=== PATIENT | female | born 1990 | race Caucasian/White ===

== ENCOUNTER 2020-02-11 20:18 | Emergency (ER) | payer OTHER, SELFPAY ==
--- NOTE | ~2020-02-11 | XR_ITS ---
XR chest 2V DATE: 02/11/2020 21:53 INDICATION: Chest pain, shortness of breath for one day. Hypertension. TECHNIQUE: 2 views COMPARISON: 11/16/2015 2 view chest FINDINGS: Normal heart size. No hilar or mediastinal enlargement. No pulmonary infiltrate or consolid ation, pleural effusion or pulmonary vascular congestion or pneumothorax. Status post cholecystectomy. IMPRESSION: No active cardiopulmonary disease Status post cholecystectomy Reviewed, dictated and finalized at location A. M [employer] ENGINEER
[2020-02-11 20:23] VITALS: BP 177/117; PULSE 105; RESP 24; TEMP 36.6; O2SAT 98
--- NOTE | 2020-02-11 20:56 | ECG_ITS ---
Measurements Intervals [place] Rate: 80 P: 25 MO: 161 QRS: 13 QRSD: 93 T: 3 QT: 398 QTc: 461 Interpretive Statements SINUS RHYTHM DELAYED PRECORDIAL R/S TRANSITION BORDERLINE T WAVE ABNORMALITY- INFERIOR LEADS BORDERLINE ECG Electronically Signed On 02-12-2020 8:38:13 [employer]INKER by Shane Magallon D.O.
[2020-02-11 21:21] LABS: Basophils Percent Auto 0.4 % (0.2-1.2); Eosinophils Absolute Auto 0.2 K/mm3 (0-0.3); Eosinophils Percent Auto 2.7 % (0-4.4); Hematocrit 45.2 % (37.0-47.0); Hemoglobin 15.1 g/dL (12.0-15.0); Immature Granulocyte Absolute 0.02 K/mm3 (0.00-0.031); Immature Granulocyte Percent A 0.3 % (0-0.5); Immature Platelet Fraction Pct 2.3 % (0.9-11.2); Lymphocytes Absolute Auto 2.37 K/mm3 (0.9-3.2); Lymphocytes Percent Auto 30.7 % (18.3-44.2); Mean Corpuscular HGB Conc 33.4 g/dl (32-36); Mean Corpuscular Hemoglobin 26.4 pg (26-34); Mean Corpuscular Volume 79.2 fl (80-100); Mean Platelet Volume 9.2 fl (7.4-10.4); Monocytes Absolute Auto 0.3 K/mm3 (0.1-0.6); Monocytes Percent Auto 4.4 % (2.6-8.5); Neutrophils Absolute Auto 4.8 K/mm3 (1.3-6.7); Neutrophils Percent Auto 61.5 % (45.5-73.1); Platelet Count Result 331 k/mm3 (150-375); Red Blood Count 5.71 M/mm3 (4.2-5.4); Red Cell Distribution Width 13.9 % (11.5-14.5); White Blood Count 7.7 K/mm3 (4.5-10.0)
[2020-02-11 23:06] VITALS: BP 163/118; PULSE 86; RESP 16; O2SAT 92
[2020-02-11 23:36] LABS: Anion Gap 11 mmol/L (8-16); Blood Urea Nitrogen 10 mg/dL (7-17); Calcium 9.2 mg/dL (8.4-10.2); Carbon Dioxide 24 mmol/L (22-30); Chloride 105 mmol/L (98-107); Estimated Glomerular Filt Rate > 60; Glucose 98 mg/dL (65-105); Potassium 3.9 mmol/L (3.4-5.0); Sodium 140 mmol/L (137-145)
--- NOTE | 2020-02-12 00:03 | ED.GENADULT ---
HPI - General Adult General Chief complaint: Shortness of Breath/Dyspnea Stated complaint: Short of Breath Time Seen by Provider: 02/11/20 23:24 Source: RN notes reviewed History of Present Illness HPI narrative: Patient presents to emergency department from home for chest pain. Patient states symptoms began approximately 6 PM this evening. Pain is located across the bilateral anterior chest and described as a pressure. Associated with mild feeling of shortness of breath. States symptoms are worse with deep inspiration. She denies any fevers or chills abdominal pain nausea vomiting diarrhea or any other symptoms. Related Data Home Medications Medication Instructions Recorded Confirmed Vitamin 02/26/19 Allergies Allergy/AdvReac Type Severity Reaction Status Date / Time No Known Allergies Allergy Verified 02/26/19 16:37 Review of Systems Review of Systems: Narrative: Gen.: Denies fevers or chills ENT: Denies congestion Respiratory: Reports mild shortness of breath CV: See HPI GI: Denies abdominal pain nausea, emesis or diarrhea denies burning, urgency, frequency or hematuria Musculoskeletal: Denies back pain or muscle pain Neuro: Denies numbness, tingling, weakness or focal weakness Skin: Denies rash Except as documented, all other systems reviewed and negative [facility] Past Medical History Medical History (Updated 02/12/20 @ 01:40 by Jose Conley DO) Patient denies significant medical history Social History Social History (Updated 02/12/20 @ 00:04 by Jose Conley DO) Smoking status: Never smoker Exam Narrative: Exam Narrative: APPEARANCE: No acute distress, nontoxic, resting in bed EYES: EOMI HEENT: Normocephalic, atraumatic, OMM RESPIRATORY: No respiratory distress Clear to auscultation bilaterally with no rhonchi wheezing or rales. CARDIOVASCULAR: Regular rate and rhythm without murmurs rubs or gallops. Chest: Tender palpation of bilateral anterior chest wall no swelling or ecchymosis, pain increased with deep inspiration ABDOMINAL: Soft, nontender, nondistended, no rebound or guarding MUSCULOSKELETAl: Moves all extremities. No clubbing, cyanosis or edema. NEURO: Awake and alert. Following commands, speech normal, no focal deficits SKIN:: Warm, dry. No rashes lesions or abrasions PSYCHIATRIC: Normal affect/mood, Course Course Emergency Course: Patient states chest pain is improved with Toradol and resolved with GI cocktail Discussed with patient results of workup and diagnosis. Discussed need for follow-up with primary care, proper use of medication, and reasons to return to the emergency department. Patient understands and agrees to current treatment plan I discussed with the patient her blood pressure states that has run high in past will refer to PCP for further evaluation as outpatient Vital Signs Vital signs: Vital Signs Temperature 97.8 F 02/11/20 20:23 Pulse Rate 105 H 02/11/20 20:23 Respiratory Rate 24 H 02/11/20 20:23 Blood Pressure 177/117 H 02/11/20 20:23 Pulse Oximetry 98 02/11/20 20:23 Temperature 97.8 F 02/11/20 20:23 Pulse Rate 88 02/12/20 01:19 Respiratory Rate 18 02/12/20 01:19 Blood Pressure 176/88 H 02/12/20 01:19 Pulse Oximetry 100 02/12/20 01:19 Medical Decision Making MDM Narrative Medical decision making narrative: Patient's EKGs and labs are without significant high risk changes. Cardiac risk factors reviewed. Patient is felt likely low risk for ACS and reasonable for further risk stratification testing as an outpatient. Pain was not sudden or maximal in onset without tearing or ripping quality. No other signs of symptoms suggest aortic dissection. A low-risk Wells criteria is noted, PE is felt to be unlikely. No pneumonia seen on evaluation today. Patient is felt to be a reasonable candidate for continued evaluation as an outpatient patient's troponin drawn in the ED was after the patient has been here in the emerg
[2020-02-12 00:16] LABS: D Dimer 0.38 ug/mL (<0.48)
[2020-02-12 00:31] LABS: Troponin I < 0.012 ng/mL (0.000-0.034)
[2020-02-12] MEDS: KETOROLAC 30 MG/ML VIAL (*BKC) IV PUSH (00:40)
[2020-02-12 01:19] VITALS: BP 176/88; PULSE 88; RESP 18; O2SAT 100
[2020-02-12 01:51] VITALS: BP 168/95; PULSE 86; RESP 18; TEMP 36.7; O2SAT 100
== END 2020-02-12 01:52 | disposition home or self-care (01) ==
PROVIDERS: Emergency Medicine; Emergency Provider Emergency Medicine; Referring Provider Emergency Medicine
DX: K21.9 Gastro-esophageal reflux disease without esophagitis (principal); R07.89 Other chest pain
CPT/HCPCS: 36415; 71046; 80048; 84484; 85025; 85055; 85380; 93005; 96374; 99284; A9270; J1885

== ENCOUNTER 2020-12-01 13:55 | Emergency (ER) | payer OTHER, SELFPAY ==
[2020-12-01 14:05] VITALS: BP 163/101; PULSE 81; RESP 16; TEMP 36.2; O2SAT 99
--- NOTE | 2020-12-01 14:35 | ED.HA ---
HPI - Headache General Chief Complaint: Headache Stated Complaint: Migraine Time Seen by Provider: 12/01/20 14:42 Source: patient, RN notes reviewed and old records reviewed Mode of arrival: ambulatory Limitations: no limitations History of Present Illness HPI Narrative: 30 year female who presents to [facility] with complaints of migraine headache which started yesterday morning. Patient states that her head hurts all over and she is holding her temples stating throbbing pain, rates pain 6/10. She states that she is light sensitive and has also been nauseated with headache with no emesis.She has tried her usual OTC medication of Ibuprofen, has increased her caffeine and has been in bed with room dark and has had no relief in her discomfort. Patient has elevation in blood pressure with no history of hypertension. Patient denies any known food or environmental triggers, is presently on menses. MD elicited complaint: headache Pertinent past history: migraines Onset (ago): day(s) (started yesterday morning) Location: temporal Severity: similar to previous episodes Quality & Timing: throbbing Exacerbating factors: light Related Data Home Medications Medication Instructions Recorded Confirmed Daily Multi-Vitamin 1 tab-cap PO DAILY 12/01/20 12/01/20 Allergies Allergy/AdvReac Type Severity Reaction Status Date / Time No Known Allergies Allergy Verified 12/01/20 14:11 Review of Systems Review of Systems: CONSTITUTIONAL: Denies fever, chills, or sweats. EYES: Denies visual changes, redness, or discharge. ENT: Denies rhinorrhea, congestion, sore throat, or otalgia. CARDIOVASCULAR: Denies chest pain, palpitations, or edema. RESPIRATORY: Denies cough or dyspnea. GASTROINTESTINAL: Denies abdominal pain,positive for episodes of nausea, no vomiting, or diarrhea. GENITOURINARY: Denies dysuria or hematuria. SKIN: Denies rash or itching. MUSCULOSKELETAL: Denies back pain, joint pain, or myalgia. NEUROLOGIC: positive throbbing temporal headache,no numbness, or weakness. PSYCHIATRIC: Denies anxiety or depression. All systems reviewed & are unremarkable except as noted in HPI and below PMFSH Past Medical History Medical History (Updated 12/04/20 @ 20:13 by Inna Fritz NP) Hx of migraines Hypertension during Surgical History Surgical History (Updated 12/01/20 @ 14:51 by Inna Fritz NP) Hx of cholecystectomy Previous section Family History Family History (Updated 12/04/20 @ 20:00 by Inna Fritz NP) Other No significant family history Social History Social History (Updated 12/04/20 @ 20:00 by Inna Fritz NP) Smoking status: Never smoker Alcohol intake: current Alcohol use details: rare Substance use: never Living arrangements: with family Gender identity (if verbalized by the patient): Female Comments At time of signature, agree with nursing past medical, surgical, social and family history. There is no relevant family history pertinent to the presenting complaint Exam Narrative: GENERAL: Well-appearing, well-nourished, and in no acute distress. HEAD: Normocephalic, atraumatic. EYES: PERRLA and EOMI.no nystagmus, photophobia, ENT: Nares clear, no rhinorrhea or epistaxis. Mucous membranes moist.TM's normal with good light reflex, throat normal with no lesions or exudates no tonsil enlargement. NECK: Supple.no nuchal rigidity, no lymphadenopathy CHEST: Clear to auscultation. No respiratory distress.SAO2 99% on room air HEART: Regular rate and rhythm. No murmur heard. Normal peripheral pulses. ABDOMEN: Soft, nontender, nondistended, normal active bowel sounds. EXTREMITIES: Normal range of motion. No edema. SKIN: Warm, dry, no rash. NEURO: No focal deficits. Alert and oriented x3.Moves all extremities on own power, no arm drift,cranial nerves intact II-XII. Course Vital Signs Vital signs: Vital Signs Temperature 36.2 C L 12/01/20 14:05 Pulse Rate 8
[2020-12-01] MEDS: KETOROLAC 30 MG/ML VIAL (*BKC) IM (15:03)
[2020-12-01 15:10] VITALS: BP 152/101
[2020-12-01 15:40] VITALS: BP 168/113
[2020-12-01] MEDS: cloNIDine HCL 0.1 MG TABLET PO (15:48)
[2020-12-01 16:12] VITALS: BP 160/110
[2020-12-01 16:13] VITALS: PULSE 71; RESP 20; O2SAT 98
== END 2020-12-01 16:33 | disposition home or self-care (01) ==
PROVIDERS: Emergency Provider Registered Nurse
DX: G43.009 Migraine without aura, not intractable, without status migrainosus (principal); R03.0 Elevated blood-pressure reading, without diagnosis of hypertension
CPT/HCPCS: 96372; 99213; A9270; G0463; J1885

== ENCOUNTER 2021-12-20 13:09 | Emergency (ER) | payer OTHER, SELFPAY ==
[2021-12-20 13:18] VITALS: BP 145/83; PULSE 89; RESP 18; TEMP 36.9; O2SAT 99
--- NOTE | 2021-12-20 13:47 | ED.URI ---
HPI - URI/Sore Throat General Chief Complaint: Upper Respiratory Infection Stated Complaint: Sore Throat, Right Ear Irritation Time Seen by Provider: 12/20/21 13:47 Source: patient and RN notes reviewed Mode of arrival: ambulatory Limitations: no limitations History of Present Illness HPI Narrative: 31-year-old female presents to the [facility] with complaints of right ear pain since yesterday. 1 ibuprofen at 1030 today. Denies fevers. No other upper respiratory symptoms. Denies chest pain, shortness of breath. Denies abdominal pain. Related Data Home Medications Medication Instructions Recorded Confirmed atorvastatin 20 mg tablet 20 mg PO DAILY 12/20/21 12/20/21 Allergies Allergy/AdvReac Type Severity Reaction Status Date / Time No Known Allergies Allergy Verified 12/20/21 13:12 Review of Systems Review of Systems: All systems reviewed & are unremarkable except as noted in HPI and below Constitutional: Constitutional: Reports no additional constitutional complaints, Denies chills and Denies fever(s) Eyes: Eyes: Reports no additional eye complaints ENT: Reports as per HPI Cardiovascular: Cardiovascular: Reports no additional cardiovascular complaints Respiratory: Respiratory: Reports no additional respiratory complaints Gastrointestinal: Gastrointestinal: Reports no additional gastrointestinal complaints Musculoskeletal: Musculoskeletal: Reports no additional musculoskeletal complaints Integumentary/Breasts: Skin/Breast: Reports system reviewed and no additional complaints, except as docu Neurologic: Reports system reviewed and no additional complaints, except as documented Psychiatric: Psychiatric: Reports no additional psychiatric complaints Allergic/Immunologic: Allergic/Immunologic: Reports no additional allergic/immunologic complaints PMFSH Past Medical History Medical History Hx of migraines Hypertension during Surgical History Surgical History Hx of cholecystectomy Previous section Family History Family History Other No significant family history Social History Social History Smoking status: Never smoker Alcohol intake: current Alcohol use details: rare Substance use: never Gender identity (if verbalized by the patient): Female Comments At the time of my signature, I reviewed and agree with the nursing past medical, surgical, social, and family history. There is no relevant family history pertinent to the patient complaint. Exam Const: General: healthy appearing, no acute distress and alert Nutritional Appearance: well nourished Orientation/consciousness: patient oriented x3 Limitations: no limitations HENMT: Head: normal to inspection Ears: external ears normal, Abnormal EAC present excessive cerumen on the right and TM abnormal erythematous on the right and with loss of landmarks on the right General nose exam: Normal external nose present and Normal nares present Face and sinus: normal facial exam Mouth: Yes Normal oral and palatal mucosa present, Yes lip normal and Yes moist mucous membranes Throat: posterior oropharynx normal and uvula midline Eyes: General: appearance normal, both eyes and all related structures Pupils: Equal, round and reactive pupils present Neck: Neck: normal visual inspection, no lymphadenopathy and no meningeal signs Chest: Chest palpation & inspection: normal inspection of the chest Resp: Effort & Inspection: normal respiratory effort and no use of accessory muscles Auscultation: clear to auscultation bilaterally, no crackles, no rales, no rhonchi and no wheezes Cardio: Rate: regular rate Rhythm: regular rhythm Back/Spine/Pelvis: Cervical Spine: normal cervical lordosis Thoracic/Lumbar Spine
== END 2021-12-20 14:08 | disposition home or self-care (01) ==
PROVIDERS: Emergency Provider Nurse Practitioner; PCP Physician Assistant
DX: H66.91 Otitis media, unspecified, right ear (principal); E78.00 Pure hypercholesterolemia, unspecified; I10 Essential (primary) hypertension
CPT/HCPCS: 99213; G0463

== ENCOUNTER 2022-05-16 17:30 | Emergency (ER) | payer OTHER, SELFPAY ==
[2022-05-16 17:35] VITALS: BP 149/92; PULSE 87; RESP 16; TEMP 36.8; O2SAT 100
--- NOTE | 2022-05-16 17:38 | ED.GENADULT ---
HPI - General Adult General Chief complaint: Upper Respiratory Infection Stated complaint: Multiple Complaints Time Seen by Provider: 05/16/22 17:38 Source: patient, RN notes reviewed and old records reviewed Mode of arrival: ambulatory Limitations: no limitations History of Present Illness HPI narrative: 31-year-old presents to the [facility] with multiple complaints. Patient complains of a migraine which she has not taken medication for. Upper respiratory congestion, ear pain, sore throat pain since waking up this morning. States she took a ibuprofen and went back to bed. No other treatment prior to arrival. Denies any blurry vision change in vision. Onset (ago): hour(s) Related Data Home Medications Medication Instructions Recorded Confirmed amlodipine 5 mg tablet mg 05/16/22 atorvastatin 20 mg tablet mg 05/16/22 hydrochlorothiazide 25 mg tablet mg 05/16/22 levonorgestrel 21 mcg/24 hours (8 1 device intrauterine ONCE 05/16/22 05/16/22 yrs) 52 mg intrauterine device (Mirena) sumatriptan succinate 25 mg tablet mg PO 05/16/22 Allergies Allergy/AdvReac Type Severity Reaction Status Date / Time No Known Allergies Allergy Verified 05/16/22 17:38 Review of Systems Review of Systems: All systems reviewed & are unremarkable except as noted in HPI and below Constitutional: Constitutional: Reports no additional constitutional complaints Eyes: Eyes: Reports no additional eye complaints ENT: Reports as per HPI and Reports sore throat Cardiovascular: Cardiovascular: Reports no additional cardiovascular complaints, Denies chest pain and Denies dyspnea Respiratory: Respiratory: Reports no additional respiratory complaints, Denies chest congestion, Denies cough and Denies dyspnea Gastrointestinal: Gastrointestinal: Reports no additional gastrointestinal complaints, Denies abdominal pain, Denies nausea and Denies vomiting Musculoskeletal: Musculoskeletal: Reports no additional musculoskeletal complaints Integumentary/Breasts: Skin/Breast: Reports system reviewed and no additional complaints, except as docu Neurologic: Reports system reviewed and no additional complaints, except as documented Psychiatric: Psychiatric: Reports no additional psychiatric complaints Allergic/Immunologic: Allergic/Immunologic: Reports no additional allergic/immunologic complaints PMFSH Past Medical History Medical History Hx of migraines Hypertension during Surgical History Surgical History Hx of cholecystectomy Previous section Family History Family History Other No significant family history Social History Social History Smoking status: Never smoker Alcohol intake: current Alcohol use details: rare Substance use: never Living arrangements: with family Gender identity (if verbalized by the patient): Female Comments At the time of my signature, I reviewed and agree with the nursing past medical, surgical, social, and family history. There is no relevant family history pertinent to the patient complaint. Exam Const: General: cooperative, healthy appearing, well developed, alert, uncomfortable and well nourished Nutritional Appearance: well nourished and obese Orientation/consciousness: patient oriented x3 Limitations: no limitations HENMT: Head: normal to inspection Ears: hearing grossly normal bilaterally and external ears normal Face/Nose/Sinus: Normal external nose present, Normal nares present, Normal nasal mucous membranes and turbinates present and normal facial exam Face and sinus: normal facial exam Mouth: Yes Normal oral and palatal mucosa present, Yes lip normal and Yes moist mucous membranes Throat: posterior oropharynx normal and uvula midline Eyes:
[2022-05-16 17:39] VITALS: BP 149/92; PULSE 87; RESP 16; TEMP 36.8; O2SAT 100
[2022-05-16] MEDS: KETOROLAC (*BKC) 60 MG/2 ML VIAL IM (18:06)
== END 2022-05-16 18:26 | disposition home or self-care (01) ==
PROVIDERS: Emergency Provider Nurse Practitioner; PCP Physician Assistant
DX: B34.9 Viral infection, unspecified (principal); Z20.822 Contact with and (suspected) exposure to COVID-19
CPT/HCPCS: 87081; 87426; 87804; 87880; 96372; 99213; C9803; G0463; J1885

== ENCOUNTER 2022-05-19 08:09 | Emergency (ER) | payer OTHER, SELFPAY ==
[2022-05-19] VITALS (7 sets, daily range): BP systolic 113–166; BP diastolic 68–114; PULSE 72–85; RESP 15–33; TEMP 36.5–37.1; O2SAT 99–100
--- NOTE | ~2022-05-19 | XR_ITS ---
EXAMINATION: XR chest 2V DATE: 05/19/2022 10:45 INDICATION: Cough and shortness of breath. Fever. TECHNIQUE: Frontal and lateral views of the chest were obtained. COMPARISON: Chest 2 views 02/11/2020 FINDINGS: There are airspace opacities in right middle lobe, consistent with pneumonia. No pleural ef fusion or pneumothorax. The heart size is normal. Surgical clips in the right upper quadrant are like ly from cholecystectomy. IMPRESSION: 1. Airspace opacities in right middle lobe, consistent with pneumonia. Reviewed, dictated and finalized at location A. GE MANAGER
[2022-05-19 09:13] LABS: Influenza A QL RT-PCR Negative (Negative); Influenza B QL RT-PCR Negative (Negative); SARS-CoV-2 RNA PCR Negative
--- NOTE | 2022-05-19 10:37 | ED.URI ---
HPI - URI/Sore Throat General Chief Complaint: Upper Respiratory Infection Stated Complaint: SOB Time Seen by Provider: 05/19/22 10:26 History of Present Illness HPI Narrative: 31-year-old female here for evaluation of upper respiratory infectious symptoms for the past 3 days. Patient states that symptoms began with a mild headache. She does have a history of migraine headaches, took her medicine with improvement. She started to develop some left ear pain afterwards, congestion, cough and low-grade temperatures. Went to an urgent care and had viral swabs that were negative. States that over the past days she has felt short of breath and has had an increased cough. Denies any chest pain, leg swelling. Related Data Home Medications Medication Instructions Recorded Confirmed amlodipine 5 mg tablet mg 05/16/22 atorvastatin 20 mg tablet mg 05/16/22 hydrochlorothiazide 25 mg tablet mg 05/16/22 levonorgestrel 21 mcg/24 hours (8 1 device intrauterine ONCE 05/16/22 05/16/22 yrs) 52 mg intrauterine device (Mirena) sumatriptan succinate 25 mg tablet mg PO 05/16/22 Allergies Allergy/AdvReac Type Severity Reaction Status Date / Time No Known Allergies Allergy Verified 05/16/22 17:38 Review of Systems Review of Systems: Gen: Reports fevers Eyes: Denies eye pain or visual change ENT: Reports congestion Respiratory: Reports shortness of breath and cough CV: Denies chest pain or palpitations GI: Denies abdominal pain nausea, emesis or diarrhea : denies burning, urgency, frequency or hematuria Musculoskeletal: Denies back pain or muscle pain Neuro: Denies numbness, tingling, weakness or focal weakness Skin: Denies rash Except as documented, all other systems reviewed and negative [facility] Past Medical History Medical History Hx of migraines Hypertension during Surgical History Surgical History Hx of cholecystectomy Previous section Family History Family History Other No significant family history Social History Social History Smoking status: Never smoker Alcohol intake: current Alcohol use details: rare Substance use: never Living arrangements: with family Gender identity (if verbalized by the patient): Female Exam Narrative: APPEARANCE: Well appearing, no pain in distress, well-nourished. Head: Normocephalic and atraumatic. EYES: PERRLA/EOMI, conjunctivae clear NOSE: No nasal drainage EARS: TMs clear bilaterally. External ear normal in appearance THROAT: Oropharynx is clear. Mucous membranes are moist. NECK: Supple. No adenopathy, no masses. RESPIRATORY: Airway patent, respirations nonlabored. Clear to auscultation bilaterally, no rales, rhonchi, wheezing. CARDIOVASCULAR: Regular rate and rhythm without murmurs, rubs, or gallops. ABDOMINAL: Normoactive bowel sounds. Soft, nontender, nondistended. No rebound tenderness or guarding. MUSCULOSKELETAL: Extremities are warm and well-perfused. Moves all extremities well. No edema. NEURO: Normal speech. No focal neurologic deficits. SKIN: Skin is warm and dry. No rashes. PSYCHIATRIC: Normal affect/mood. Course Vital Signs Vital signs: Vital Signs Temperature 97.7 F 05/19/22 08:31 Pulse Rate 74 05/19/22 08:31 Respiratory Rate 16 05/19/22 08:31 Blood Pressure 166/95 H 05/19/22 08:31 Pulse Oximetry 99 05/19/22 08:31 Oxygen Delivery Room Air 05/19/22 08:31 Temperature 98.8 F 05/19/22 11:04 Pulse Rate 72 05/19/22 11:41 Respiratory Rate 24 H 05/19/22 11:41 Blood Pressure 146/84 H 05/19/22 11:40 Pulse Oximetry 99 05/19/22 11:40 Oxygen Delivery Room Air 05/19/22 08:31 MDM - URI/Sore Throat MDM Narrative Medical decision making narrative: 31-ye
[2022-05-19 11:14] LABS: Basophils Percent Auto 0.4 % (0.2-1.2); Eosinophils Absolute Auto 0.3 K/mm3 (0-0.3); Eosinophils Percent Auto 5.7 % (0-4.4); Hematocrit 41.7 % (37.0-47.0); Hemoglobin 14.4 g/dL (12.0-15.0); Immature Granulocyte Absolute 0.01 K/mm3 (0.00-0.031); Immature Granulocyte Percent A 0.2 % (0-0.5); Lymphocytes Absolute Auto 1.13 K/mm3 (0.9-3.2); Lymphocytes Percent Auto 23.9 % (18.3-44.2); Mean Corpuscular HGB Conc 34.5 g/dl (32-36); Mean Corpuscular Hemoglobin 29.5 pg (26-34); Mean Corpuscular Volume 85.5 fl (80-100); Mean Platelet Volume 9.4 fl (7.4-10.4); Monocytes Absolute Auto 0.3 K/mm3 (0.1-0.6); Neutrophils Percent Auto 62.8 % (45.5-73.1); Platelet Count Result 218 k/mm3 (150-375); Red Blood Count 4.88 M/mm3 (4.2-5.4); White Blood Count 4.7 K/mm3 (4.5-10.0)
[2022-05-19 11:28] LABS: Alanine Aminotransferase 57 U/L (6-35); Albumin Level 4.3 g/dL (3.5-5.1); Alkaline Phosphatase 65 U/L (38-126); Anion Gap 7 mmol/L (8-16); Aspartate Amino Transferase 39 U/L (14-36); Bilirubin,Total 0.6 mg/dL (0.2-1.3); Blood Urea Nitrogen 11 mg/dL (7-17); Calcium 8.1 mg/dL (8.4-10.2); Carbon Dioxide 24 mmol/L (22-30); Chloride 104 mmol/L (98-107); Glucose 98 mg/dL (65-110); Potassium 3.7 mmol/L (3.4-5.0); Sodium 135 mmol/L (137-145)
[2022-05-19] MEDS: ALBUTEROL SULFATE NEB 2.5 MG/3 ML INH INHALATION (11:39)
[2022-05-19 13:27] LABS: Estimated Glomerular Filt Rate > 60
== END 2022-05-19 11:45 | disposition home or self-care (01) ==
PROVIDERS: Emergency Medicine; Emergency Provider Physician Assistant; PCP Physician Assistant
DX: J18.9 Pneumonia, unspecified organism (principal); Z20.822 Contact with and (suspected) exposure to COVID-19; Z97.5 Presence of (intrauterine) contraceptive device
CPT/HCPCS: 36415; 71046; 80053; 85025; 87636; 94640; 99283

== ENCOUNTER 2023-01-18 12:08 | Emergency (ER) | payer OTHER, SELFPAY ==
[2023-01-18 12:17] VITALS: BP 166/97; PULSE 90; RESP 16; TEMP 37; O2SAT 90
--- NOTE | 2023-01-18 12:28 | ED.GENADULT ---
HPI - General Adult General Chief complaint: Headache Stated complaint: Headache/Abdominal Pain Time Seen by Provider: 01/18/23 12:28 Source: patient, RN notes reviewed and old records reviewed Mode of arrival: ambulatory Limitations: no limitations History of Present Illness HPI narrative: 32-year-old female presents to the [facility] with complaints of ?worst headache of my life. ? Symptoms started 3-4 days ago. Has tried multiple [id number] products to include Excedrin, Tylenol. Has taken her amitriptyline as well as her sumatriptan. Denies any change in vision. Reports generalized headache, worse on the left side. Patient is light and sound sensitive. Reports severe nausea and vomiting, unable to keep any fluids down Denies fevers. Onset (ago): day(s) (3-4) Severity scale (1-10): 8 Relieving factors: none Treatments prior to arrival: other Related Data Home Medications Medication Instructions Recorded Confirmed amlodipine 5 mg tablet 5 mg PO DAILY 05/16/22 01/18/23 atorvastatin 20 mg tablet 20 mg PO DAILY 05/16/22 01/18/23 hydrochlorothiazide 25 mg tablet 25 mg PO DAILY 05/16/22 01/18/23 levonorgestrel 21 mcg/24 hours (8 1 device intrauterine ONCE 05/16/22 01/18/23 yrs) 52 mg intrauterine device (Mirena) sumatriptan succinate 25 mg tablet 25 mg PO DIRECTED 05/16/22 01/18/23 amitriptyline 10 mg tablet 10 mg PO DAILY 01/18/23 01/18/23 ergocalciferol (vitamin D2) 1,250 1,250 mcg PO DIRECTED 01/18/23 01/18/23 mcg (50,000 unit) capsule Allergies Allergy/AdvReac Type Severity Reaction Status Date / Time No Known Allergies Allergy Verified 01/18/23 12:11 Review of Systems Review of Systems: All systems reviewed & are unremarkable except as noted in HPI and below Constitutional: Constitutional: Reports no additional constitutional complaints Eyes: Eyes: Reports no additional eye complaints ENT: Reports system reviewed and no additional complaints, except as documented Cardiovascular: Cardiovascular: Reports no additional cardiovascular complaints, Denies chest pain and Denies dyspnea Respiratory: Respiratory: Reports no additional respiratory complaints, Denies chest congestion, Denies cough and Denies dyspnea Gastrointestinal: Gastrointestinal: Reports no additional gastrointestinal complaints, Denies abdominal pain, Denies nausea and Denies vomiting Musculoskeletal: Musculoskeletal: Reports no additional musculoskeletal complaints Integumentary/Breasts: Skin/Breast: Reports system reviewed and no additional complaints, except as docu Neurologic: Reports as per HPI, Denies Abnormal speech present and Reports headache(s) Psychiatric: Psychiatric: Reports no additional psychiatric complaints Allergic/Immunologic: Allergic/Immunologic: Reports no additional allergic/immunologic complaints PMFSH Past Medical History Medical History Hx of migraines Hypertension during Surgical History Surgical History Hx of cholecystectomy Previous section Family History Family History Other No significant family history Social History Social History Smoking status: Never smoker Alcohol intake: current Alcohol use details: rare Substance use: never Living arrangements: with family Gender identity (if verbalized by the patient): Female Comments At the time of my signature, I reviewed and agree with the nursing past medical, surgical, social, and family history. There is no relevant family history pertinent to the patient complaint. Exam Const: General: cooperative, healthy appearing, well developed, alert, uncomfortable and well nourished Nutritional Appearance: well nourished and obese Orientation/consciousness: patient oriented x3 Limitat
== END 2023-01-18 12:39 | disposition short-term general hospital (02) ==
PROVIDERS: Emergency Provider Nurse Practitioner; PCP Physician Assistant
DX: R51.9 Headache, unspecified (principal); R11.2 Nausea with vomiting, unspecified
CPT/HCPCS: 99213; G0463

== ENCOUNTER 2023-01-18 13:02 | Emergency (ER) | payer OTHER, SELFPAY ==
--- NOTE | ~2023-01-18 | CT_ITS ---
EXAMINATION: CT brain wo con DATE: 01/18/2023 15:35 INDICATION: Migraine with nausea TECHNIQUE: Computed tomography (CT) of the head was performed without intravenous contrast. Sagittal and coronal reconstructions were performed. The mA was adjusted according to patient size. Iterative reconstruction technique was employed. The dose-length product was 605.33 mGy-cm. COMPARISON: None FINDINGS: No acute intracranial hemorrhage, acute infarction or abnormal extra axial fluid collection. There is mild scattered white matter hypoattenuation which is atypical for age. Ventricles are normal and sy mmetric. No mass/mass effect. Mild dystrophic calcification at the bilateral basal ganglia. The orbit s, paranasal sinuses and mastoid air cells are normal. IMPRESSION: 1. Mild nonspecific cerebral white matter disease which is atypical for age. The differential diagnos is includes premature chronic small vessel ischemic disease (especially if the patient has cardiovasc ular risk factors), migraines, demyelinating disease such as multiple sclerosis, drug abuse, vasculit is, or reactive astrocytosis (gliosis) secondary to nonspecific etiology. Reviewed, dictated and finalized at location A. IMPRESSION: 1. Mild nonspecific cerebral white matter disease which is atypical for age. Th e differential diagnosis includes premature chronic small vessel ischemic disea se (especially if the patient has cardiovascular risk factors), migraines, demy elinating disease such as multiple sclerosis, drug abuse, vasculitis, or reacti ve astrocytosis (gliosis) secondary to nonspecific etiology.
[2023-01-18 13:03] VITALS: BP 178/105; PULSE 83; RESP 20; TEMP 36.6; O2SAT 99
[2023-01-18 14:51] VITALS: BP 153/114; PULSE 94; RESP 18; TEMP 36.6; O2SAT 98
--- NOTE | 2023-01-18 15:31 | ED.GENADULT ---
HPI - General Adult General Chief complaint: Headache Stated complaint: migraine/nausea Time Seen by Provider: 01/18/23 14:48 History of Present Illness HPI narrative: 32-year-old female with history of migraines presented the emergency department for evaluation of worsening headache. Patient states she has had a migraine over the course of the last few days. Patient did present to urgent care and patient was referred to the emergency department for evaluation. Patient states she feels this is significantly worse than her typical migraines. Patient does report light sensitivity and associated nausea and vomiting. Patient denies any falls or injuries. Patient does not any blood thinners. Patient denies any prior history of intracranial surgery Related Data Home Medications Medication Instructions Recorded Confirmed amlodipine 5 mg tablet 5 mg PO DAILY 05/16/22 01/18/23 atorvastatin 20 mg tablet 20 mg PO DAILY 05/16/22 01/18/23 hydrochlorothiazide 25 mg tablet 25 mg PO DAILY 05/16/22 01/18/23 levonorgestrel 21 mcg/24 hours (8 1 device intrauterine ONCE 05/16/22 01/18/23 yrs) 52 mg intrauterine device (Mirena) sumatriptan succinate 25 mg tablet 25 mg PO DIRECTED 05/16/22 01/18/23 amitriptyline 10 mg tablet 10 mg PO DAILY 01/18/23 01/18/23 ergocalciferol (vitamin D2) 1,250 1,250 mcg PO DIRECTED 01/18/23 01/18/23 mcg (50,000 unit) capsule Allergies Allergy/AdvReac Type Severity Reaction Status Date / Time No Known Allergies Allergy Verified 01/18/23 14:50 Review of Systems Review of Systems: All systems reviewed & are unremarkable except as noted in HPI and below PMFSH Past Medical History Medical History Hx of migraines Hypertension during Surgical History Surgical History Hx of cholecystectomy Previous section Family History Family History Other No significant family history Social History Social History Smoking status: Never smoker Alcohol intake: current Alcohol use details: rare Substance use: never Living arrangements: with family Gender identity (if verbalized by the patient): Female Exam Narrative: APPEARANCE: Well appearing, no pain, no distress, well-nourished. HEAD: normocephalic, atraumatic. EYES: PERRLA/EOMI, conjunctivae clear. NOSE: Normal no drainage NECK: Supple. No adenopathy, no masses. RESPIRATORY: Airway patent, respirations nonlabored. Clear to auscultation bilaterally, no rales, rhonchi, wheezing. CARDIOVASCULAR: Regular rate and rhythm without murmurs rubs or gallops. ABDOMINAL: Soft, nontender, nondistended, normal bowel sounds MUSCULOSKELETAL: Moves all extremities. Strength/ROM intact, No edema, No calf tenderness. NEURO: Alert. Cranial nerves II through XII intact. Grossly intact SKIN: Warm, dry. Normal Color Course Course Emergency Course: 32-year-old female with history of migraines presented the ED for evaluation of worsening headache. Head CT was ordered due to the patient stating this was the worst migraine of her life. Head CT did show some greater than expected nonspecific white matter disease. Patient states that her headache was resolved from the migraine cocktail. Patient states she does have follow-up scheduled with [facility] neurology. Patient was encouraged to discuss the CT findings today with them. All questions concerns were addressed and patient was comfortable with the plan for discharge and close follow-up. Vital Signs Vital signs: Vital Signs Temperature 98 F 01/18/23 13:03 Pulse Rate 83 01/18/23 13:03 Respiratory Rate 20 01/18/23 13:03 Blood Pressure 178/105 H 01/18/23 13:03 Pulse Oximetry 99 01/18/23 13:03 Oxygen Delivery Room Air 01/18/23 13:03 Temperatu
[2023-01-18] MEDS: SODIUM CHLORIDE 0.9% IV 1,000 ML 999 ML IV CONT (15:55)
[2023-01-18] MEDS: PROCHLORPERAZINE EDISYLATE 10 MG/2 ML VIAL IV PUSH (15:56)
[2023-01-18] MEDS: diphenhydrAMINE HCl INJ 50 MG/ML VIAL 25 MG IV PUSH (15:56)
[2023-01-18] MEDS: KETOROLAC 15 MG/ML VIAL (*BKC) IV PUSH (16:15)
[2023-01-18 17:25] VITALS: BP 140/90; PULSE 109; RESP 18; TEMP 36.4; O2SAT 100
== END 2023-01-18 17:27 | disposition home or self-care (01) ==
PROVIDERS: Emergency Provider Emergency Medicine; PCP Physician Assistant
DX: R51.9 Headache, unspecified (principal); Z79.899 Other long term (current) drug therapy
CPT/HCPCS: 70450; 96361; 96374; 96375; 99213; 99284; G0463; J0780; J1200; J1885; J7030

== ENCOUNTER 2023-04-27 14:11 | Emergency (ER) | payer OTHER, SELFPAY ==
--- NOTE | 2023-04-27 14:20 | ED.GENADULT ---
HPI - General Adult General Chief complaint: Nausea/Vomiting/Diarrhea Stated complaint: Abdominal Pain Source: patient, RN notes reviewed and old records reviewed Mode of arrival: ambulatory Limitations: no limitations History of Present Illness HPI narrative: 32-year-old female presents to [facility] with complaints of nausea, diarrhea, diffuse abdominal pains 2-3 days ago. Patient is not taking anything for pain. Patient states is having urinary frequency. Patient denies vomiting. MD complaint: Abdominal pain, nausea, diarrhea Onset (ago): day(s) (2-3) Related Data Home Medications Medication Instructions Recorded Confirmed amlodipine 5 mg tablet 5 mg PO DAILY 05/16/22 04/27/23 atorvastatin 20 mg tablet 20 mg PO DAILY 05/16/22 04/27/23 hydrochlorothiazide 25 mg tablet 25 mg PO DAILY 05/16/22 04/27/23 levonorgestrel 21 mcg/24 hours (8 1 device intrauterine ONCE 05/16/22 04/27/23 yrs) 52 mg intrauterine device (Mirena) sumatriptan succinate 25 mg tablet 25 mg PO DIRECTED 05/16/22 04/27/23 amitriptyline 10 mg tablet 10 mg PO DAILY 01/18/23 04/27/23 ergocalciferol (vitamin D2) 1,250 1,250 mcg PO DIRECTED 01/18/23 04/27/23 mcg (50,000 unit) capsule Allergies Allergy/AdvReac Type Severity Reaction Status Date / Time No Known Allergies Allergy Verified 04/27/23 14:16 Review of Systems Constitutional: Constitutional: Reports no additional constitutional complaints, Reports body ache(s), Denies chills, Reports fatigue, Denies fever(s) and Denies headache(s) Eyes: Eyes: Reports no additional eye complaints and Denies blurry vision ENT: Reports system reviewed and no additional complaints, except as documented, Denies vertigo, Denies dizziness, Denies ear discharge, Denies otalgia, Denies facial pain, Denies headache(s), Denies nasal congestion, Denies nasal discharge, Denies sinus pain, Denies sinus pressure and Denies sore throat Cardiovascular: Cardiovascular: Reports no additional cardiovascular complaints, Denies chest pain, Denies chest pain at rest, Denies rapid heart rate and Denies dyspnea Respiratory: Respiratory: Reports no additional respiratory complaints, Denies chest congestion, Denies cough, Denies pain on inspiration, Denies pain with cough and Denies dyspnea Gastrointestinal: Gastrointestinal: Reports abdominal pain, Reports diarrhea, Reports nausea and Denies vomiting Integumentary/Breasts: Skin/Breast: Denies rash Neurologic: Reports system reviewed and no additional complaints, except as documented, Denies vertigo, Denies dizziness and Denies headache(s) Endocrine: Endocrine: Denies fatigue PMFSH Past Medical History Medical History Hx of migraines Hypertension during Surgical History Surgical History Hx of cholecystectomy Previous section Family History Family History Other No significant family history Social History Social History Smoking status: Never smoker Alcohol intake: current Alcohol use details: rare Substance use: never Living arrangements: with family Gender identity (if verbalized by the patient): Female Comments At the time of my signature, I reviewed and agree with the nursing past medical, surgical, social, and family history. There is no relevant family history pertinent to the patient complaint. Exam Const: General: cooperative, healthy appearing, no acute distress and well nourished Nutritional Appearance: well nourished Orientation/consciousness: patient oriented x3 Limitations: no limitations HENMT: Head: normal to inspection and normocephalic Ears: external ears normal, TM's normal bilaterally, mastoids normal and Abnormal EAC present Face/Nose/Sinus: normal facial exam Face and sinus: no
[2023-04-27 14:21] VITALS: BP 150/81; PULSE 86; RESP 18; TEMP 36.5; O2SAT 100
== END 2023-04-27 14:50 | disposition home or self-care (01) ==
PROVIDERS: Emergency Provider Registered Nurse; PCP Physician Assistant
DX: A08.4 Viral intestinal infection, unspecified (principal); Z79.899 Other long term (current) drug therapy; Z20.822 Contact with and (suspected) exposure to COVID-19
CPT/HCPCS: 81003; 81025; 87426; 87804; 99213; G0463

== ENCOUNTER 2023-07-19 13:42 | Emergency (ER) | payer OTHER, SELFPAY ==
[2023-07-19 13:56] VITALS: BP 168/98; PULSE 79; RESP 18; TEMP 37.1; O2SAT 98
--- NOTE | 2023-07-19 14:23 | ED.URI ---
HPI - URI/Sore Throat General Chief Complaint: Upper Respiratory Infection Stated Complaint: Sinus Time Seen by Provider: 07/19/23 14:15 Source: patient and RN notes reviewed Mode of arrival: ambulatory Limitations: no limitations History of Present Illness HPI Narrative: Patient presents today with a 2 day history of nasal congestion, body aches, headache, nausea. Denies any additional symptoms to include fever, sore throat, cough, vomiting. She has tried Tylenol, Flonase, allergy medicine with some mild short-term relief. 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 Related Data Home Medications Medication Instructions Recorded Confirmed amlodipine 5 mg tablet 5 mg PO DAILY 05/16/22 07/19/23 atorvastatin 20 mg tablet 20 mg PO DAILY 05/16/22 07/19/23 hydrochlorothiazide 25 mg tablet 25 mg PO DAILY 05/16/22 07/19/23 levonorgestrel 21 mcg/24 hours (8 1 device intrauterine ONCE 05/16/22 07/19/23 yrs) 52 mg intrauterine device (Mirena) sumatriptan succinate 25 mg tablet 25 mg PO DIRECTED 05/16/22 07/19/23 amitriptyline 10 mg tablet 10 mg PO DAILY 01/18/23 07/19/23 ergocalciferol (vitamin D2) 1,250 1,250 mcg PO DIRECTED 01/18/23 07/19/23 mcg (50,000 unit) capsule Allergies Allergy/AdvReac Type Severity Reaction Status Date / Time No Known Allergies Allergy Verified 07/19/23 13:44 Review of Systems Review of Systems: CONSTITUTIONAL: Denies fever, chills, or sweats.+ body aches EYES: Denies visual changes, redness, or discharge. ENT: Denies rhinorrhea, sore throat, or otalgia.+ congestion CARDIOVASCULAR: Denies chest pain, palpitations, or edema. RESPIRATORY: Denies cough or dyspnea. GASTROINTESTINAL: Denies abdominal pain, vomiting, or diarrhea.+ nausea GENITOURINARY: Denies dysuria or hematuria. SKIN: Denies rash, itching, or wounds. MUSCULOSKELETAL: Denies back pain, joint pain, or myalgia. NEUROLOGIC: Denies numbness, tingling, or weakness.+ headache PSYCH: Denies depression or anxiety. [facility] Past Medical History Medical History Hx of migraines Hypertension during Surgical History Surgical History Hx of cholecystectomy Previous section Family History Family History Other No significant family history Social History Social History Smoking status: Never smoker Alcohol intake: current Alcohol use details: rare Substance use: never Living arrangements: with family Gender identity (if verbalized by the patient): Female Comments At time of signature, I have reviewed and agree with nursing past medical, surgical, social and family history unless otherwise noted. Please see nursing chart for further information. There is no relevant family history pertinent to the presenting complaint Exam Narrative: GENERAL: Mildly ill-appearing, well-nourished, and in no acute distress. HEAD: Normocephalic, atraumatic. EYES: EOMI. No redness or drainage. Conjunctivae normal. ENT: Mucous membranes pink and moist. Nares congested. No rhinorrhea. TMs normal bilaterally. Throat mildly erythematous without edema or exudate. Uvula midline. NECK: Normal AROM. Supple. No lymphadenopathy. CHEST: No respiratory distress. Clear to auscultation. HEART: Regular rate and rhythm. No murmur appreciated. EXTREMITIES: Normal range of motion. No edema. SKIN: Warm, dry, no rash. Capillary refill normal. Normal skin turgor. NEURO: No focal deficits. Alert and oriented x3. Gait steady. PSYCH: Normal affect. No signs of depression or anxiety. Course Course Level of Care: Express Care Visit Vital Signs Vital signs: Vital Signs Temperature 98.7 F 07/19/23 13:56 Pulse Rate 79 07/19/23 13:56 R
== END 2023-07-19 14:35 | disposition home or self-care (01) ==
PROVIDERS: Emergency Provider Nurse Practitioner; PCP Physician Assistant
DX: J06.9 Acute upper respiratory infection, unspecified (principal); Z20.822 Contact with and (suspected) exposure to COVID-19
CPT/HCPCS: 87426; 87804; 99213; G0463

== ENCOUNTER 2023-12-21 15:05 | Emergency (ER) | payer OTHER, SELFPAY ==
[2023-12-21 15:15] VITALS: BP 166/97; PULSE 77; RESP 18; TEMP 36.8; O2SAT 99
[2023-12-21] MEDS: KETOROLAC (*BKC) 60 MG/2 ML VIAL IM (15:34)
[2023-12-21] MEDS: ONDANSETRON HCL ODT 4 MG TABLET SUBLINGUAL (15:34)
--- NOTE | 2023-12-21 15:34 | ED.HA ---
HPI - Headache General Chief Complaint: Headache Stated Complaint: Headache/Vomiting Time Seen by Provider: 12/21/23 15:14 Source: patient, RN notes reviewed and old records reviewed Mode of arrival: ambulatory Limitations: no limitations History of Present Illness HPI Narrative: 33-year-old female presents to the [facility] with complaints of a migraine headache and vomiting. States it feels like her typical migraine with light and sound sensitivity, vomiting. Has taken Tylenol. States that she is able to keep fluids down without issue and does not feel dehydrated. Related Data Home Medications Medication Instructions Recorded Confirmed amlodipine 5 mg tablet 5 mg PO DAILY 05/16/22 12/21/23 atorvastatin 20 mg tablet 20 mg PO DAILY 05/16/22 12/21/23 hydrochlorothiazide 25 mg tablet 25 mg PO DAILY 05/16/22 12/21/23 levonorgestrel 21 mcg/24 hr (up to 1 device intrauterine ONCE 05/16/22 12/21/23 8 years) 52 mg intrauterine device (Mirena) Allergies Allergy/AdvReac Type Severity Reaction Status Date / Time No Known Allergies Allergy Verified 12/21/23 15:09 Review of Systems Review of Systems: All systems reviewed & are unremarkable except as noted in HPI and below Constitutional: Constitutional: Reports as per HPI and Reports headache(s) Eyes: Eyes: Reports no additional eye complaints ENT: Reports system reviewed and no additional complaints, except as documented Cardiovascular: Cardiovascular: Reports no additional cardiovascular complaints, Denies chest pain and Denies dyspnea Respiratory: Respiratory: Reports no additional respiratory complaints, Denies chest congestion, Denies cough and Denies dyspnea Gastrointestinal: Gastrointestinal: Reports no additional gastrointestinal complaints, Denies abdominal pain, Denies nausea and Denies vomiting Musculoskeletal: Musculoskeletal: Reports no additional musculoskeletal complaints Integumentary/Breasts: Skin/Breast: Reports system reviewed and no additional complaints, except as docu Neurologic: Reports system reviewed and no additional complaints, except as documented Psychiatric: Psychiatric: Reports no additional psychiatric complaints Allergic/Immunologic: Allergic/Immunologic: Reports no additional allergic/immunologic complaints PMFSH Past Medical History Medical History Hx of migraines Hypertension during Surgical History Surgical History Hx of cholecystectomy Previous section Family History Family History Other No significant family history Social History Social History Smoking status: Never smoker Alcohol intake: current Alcohol use details: rare Substance use: never Living arrangements: with family Gender identity (if verbalized by the patient): Female Comments At the time of my signature, I reviewed and agree with the nursing past medical, surgical, social, and family history. There is no relevant family history pertinent to the patient complaint. Exam Const: General: cooperative, healthy appearing, no acute distress, well developed, alert, tired appearing, uncomfortable and well nourished Nutritional Appearance: well nourished and obese Orientation/consciousness: patient oriented x3 Limitations: no limitations HENMT: Head: normal to inspection Ears: hearing grossly normal bilaterally, external ears normal, TM's normal bilaterally, EAC's normal, mastoids normal and no periauricular adenopathy Face/Nose/Sinus: Normal external nose present, Normal nares present, Normal nasal mucous membranes and turbinates present, normal facial exam and face symmetric Face and sinus: normal facial exam and face symmetric Mouth: Yes Normal oral and palatal mucosa present, Yes lip normal and Yes to
== END 2023-12-21 16:15 | disposition home or self-care (01) ==
PROVIDERS: Emergency Provider Nurse Practitioner; PCP Physician Assistant
DX: G43.909 Migraine, unspecified, not intractable, without status migrainosus (principal)
CPT/HCPCS: 96372; 99213; A9270; G0463; J1885

== ENCOUNTER 2024-02-15 16:18 | Emergency (ER) | payer SELFPAY ==
[2024-02-15 16:38] VITALS: BP 175/97; PULSE 80; RESP 16; TEMP 37; O2SAT 100
--- NOTE | 2024-02-15 17:04 | ED_ITS ---
HPI - URI/Sore Throat General Chief Complaint: Ear Stated Complaint: Headache/Ear Pain Time Seen by Provider: 02/15/24 17:04 Source: patient, RN notes reviewed and old records reviewed Mode of arrival: ambulatory Limitations: no limitations History of Present Illness HPI Narrative: 33-year-old female presents to the [facility] with complaints of headache, temporal area, ear fullness, right upper and right lower abdominal pain as well as epigastric pain. Reports nausea vomiting and diarrhea. Denies chest pain. States Tylenol has not worked. Denies any urinary symptoms. No CVA tenderness. Denies fevers. Onset (ago): hour(s) (12) Related Data Home Medications Medication Instructions Recorded Confirmed amlodipine 5 mg tablet 5 mg PO DAILY 05/16/22 12/21/23 atorvastatin 20 mg tablet 20 mg PO DAILY 05/16/22 12/21/23 hydrochlorothiazide 25 mg tablet 25 mg PO DAILY 05/16/22 12/21/23 levonorgestrel 21 mcg/24 hr (up to 1 device intrauterine ONCE 05/16/22 12/21/23 8 years) 52 mg intrauterine device (Mirena) Allergies Allergy/AdvReac Type Severity Reaction Status Date / Time No Known Allergies Allergy Verified 12/21/23 15:09 Review of Systems Review of Systems: All systems reviewed & are unremarkable except as noted in HPI and below Constitutional: Constitutional: Reports as per HPI, Reports fatigue and Reports headache(s) ENT: Reports system reviewed and no additional complaints, except as documented Cardiovascular: Cardiovascular: Reports no additional cardiovascular complaints, Denies chest pain and Denies dyspnea Respiratory: Respiratory: Reports no additional respiratory complaints, Denies chest congestion, Denies cough and Denies dyspnea Gastrointestinal: Gastrointestinal: Reports as per HPI, Reports abdominal pain, Reports nausea and Reports vomiting Musculoskeletal: Musculoskeletal: Reports no additional musculoskeletal complaints Integumentary/Breasts: Skin/Breast: Reports system reviewed and no additional complaints, except as docu PMFSH Past Medical History Medical History Hx of migraines Hypertension during Surgical History Surgical History Hx of cholecystectomy Previous section Family History Family History Other No significant family history Social History Social History Smoking status: Never smoker Alcohol intake: current Alcohol use details: rare Substance use: never Living arrangements: with family Gender identity (if verbalized by the patient): Female Comments At the time of my signature, I reviewed and agree with the nursing past medical, surgical, social, and family history. There is no relevant family history pertinent to the patient complaint. Exam Const: General: cooperative, no acute distress, well developed, alert, tired appearing, uncomfortable and well nourished Nutritional Appearance: well nourished and obese morbidly obese Orientation/consciousness: patient oriented x3 Limitations: no limitations HENMT: Head: normal to inspection Ears: hearing grossly normal bilaterally, external ears normal, EAC's normal, mastoids normal, no periauricular adenopathy and TM abnormal with fluid behind the TM bilateral; not erythematous Face/Nose/Sinus: Normal external nose present, normal facial exam and face symmetric Face and sinus: normal facial exam and face symmetric Mouth: Yes Normal oral and palatal mucosa present, Yes lip normal and Yes tongue normal Throat: posterior oropharynx normal, uvula midline and no uvular edema Eyes: General: appearance normal, both eyes and all related structures Alignment and Position: alignment normal Periorbital: periorbital findings normal Neck: Neck: normal visual inspection, full ROM, no lymphadenopathy and no meningeal signs Chest: Chest palpation & inspection: normal inspection of the chest Resp: Effort & Inspection: normal respiratory effort and able to speak in complete sentences Auscultation: clear to auscultation bilaterally, no crackles, no rales, no rhonchi and no wheezes Cardio: Rate: regular rate GI: GI Palp: Yes abdominal tenderness (Epigastric, right upper, right lower), Yes Soft to palpation, Yes Tenderness to palpation present (GI) and No Guarding due to palpation present (GI) Auscultation: normal bowel sounds Skin: General skin exam: normal color and no rashes or lesions noted Lesions: no lesions Rashes: no rashes Wounds: no wounds Neuro: General: patient oriented x3, gait normal, tone normal, moves all extremities and no meningeal signs Cognition (Neuro): normal cognition Speech: normal speech Gait exam (Neuro): Normal gait present Extrem: General: normal to inspection, full ROM, capillary refill normal and normal gait Psych: Appearance: grossly normal and well kempt Mental Status: mental sta tus grossly normal Speech and movement: Normal speech and movement present and Clear speech present Affect: normal affect Attitude: cooperative Course Course Level of Care: Express Care Visit Vital Signs Vital signs: Vital Signs Temperature 98.6 F 02/15/24 16:38 Pulse Rate 80 02/15/24 16:38 Respiratory Rate 16 02/15/24 16:38 Blood Pressure 175/97 H 02/15/24 16:38 Pulse Oximetry 100 02/15/24 16:38 Oxygen Delivery Room Air 02/15/24 16:38 Temperature 98.6 F 02/15/24 16:38 Pulse Rate 80 02/15/24 16:38 Respiratory Rate 16 02/15/24 16:38 Blood Pressure 175/97 H 02/15/24 16:38 Pulse Oximetry 100 02/15/24 16:38 Oxygen Delivery Room Air 02/15/24 16:38 Reviewed Transfer Transfered to: [facility] (Per patient request) Transportation: Other (POV, patient request, declined EMS) Transfer rationale: Patient with approximately 12 hours of abdominal pain, nausea, vomiting. Sending to rule out appendicitis Accepting physician: Spoke with Farhat SESAY, Dr. Haddad [facility] - URI/Sore Throat [facility] Narrative Medical decision making narrative: Patient sitting in exam room. Appears uncomfortable. Patient reports 12 hours of increasing right upper, right lower and epigastric pain associated with nausea. Patient also reports headache, ear discomfort. Sending patient for higher level of care to rule out acute abdomen Transfer instructions reviewed with patient to go directly to the emergency room. Do not eat or drink. EMS was offered, patient declined. All questions have been answered, and the patient deny any further questions Some parts of this dictation were generated by voice recognition software and may contain typographical and/or grammatical inaccuracies. Differential Diagnosis Differential diagnosis: Likely upper respiratory infection, otitis media, sinusitis, viral infection, pharyngitis and other Critical Care Time Critical Care Time Critical Care Time: No Discharge Plan Discharge Clinical Impression: Abdominal pain Patient Disposition: Acute Care Hospital Condition: Stable Patient Language: Eritrean Prescriptions: No Action atorvastatin 20 mg tablet 20 mg PO DAILY amlodipine 5 mg tablet 5 mg PO DAILY hydrochlorothiazide 25 mg tablet 25 mg PO DAILY Mirena 21 mcg/24 hours (8 yrs) 52 mg Intrauterine Device 1 device INTRAUTERINE ONCE Rx Instructions: as a single dose Follow-up/Referrals: Aaron,VINEET Mariscal [Primary Care Provider] - Time of Disposition: 17:15
== END 2024-02-15 17:10 | disposition short-term general hospital (02) ==
PROVIDERS: Emergency Provider Nurse Practitioner; PCP Physician Assistant
DX: R10.13 Epigastric pain (principal); R10.11 Right upper quadrant pain; R10.31 Right lower quadrant pain
CPT/HCPCS: 99212; G0463

== ENCOUNTER 2024-02-15 17:26 | Emergency (ER) | payer SELFPAY ==
--- NOTE | ~2024-02-15 | CT_ITS ---
CLINICAL INDICATION: Right-sided abdominal pain COMPARISON: None. TECHNIQUE: Multiple contiguous axial images of the abdomen and pelvis were performed following the ad ministration of with 100 mL Omnipaque-350 intravenous contrast The dose-length product (DLP) was 1614.72 mGy-cm. Automated exposure control and iterative reconstruction technique were employed. FINDINGS/OBSERVATIONS: Visualized lower thorax: The bilateral lung bases are clear. The heart is of normal size, without pericardial effusion. Small hiatal hernia is present. Liver: The liver enhances homogeneously and is enlarged measuring 20 cm in longitudinal dimension. Diffuse f atty infiltration is noted. Gallbladder and biliary system: The gallbladder is surgically absent. Pancreas: The pancreas enhances homogeneously without ductal dilatation. Spleen: The spleen enhances homogeneously and is within the upper limits of normal for size measuring 12 cm i n longitudinal dimension. Kidneys: The bilateral kidneys enhance symmetrically without hydronephrosis or renal calculi. Adrenal glands: Unremarkable. Gastrointestinal tract: Colonic diverticulosis without surrounding inflammatory change. Appendix: The air-filled appendix is of normal caliber (axial series, images 118-129). Vasculature: Unremarkable. No aneurysmal dilatation or significant stenosis. Lymph nodes: No pathologically enlarged or morphologically suspicious lymph nodes within the retroperitoneum or at the root of the mesentery. Pelvic structures: The bladder is distended, and otherwise unremarkable. The uterus is anteverted and anteflexed and extends to the right of midline within intrauterine devic e in good position. Body wall and musculoskeletal: Small fat-containing umbilical hernia. No significant degenerative disease within the lower thoracic or lumbosacral spine. IMPRESSION: Fatty infiltration of an enlarged liver. Colonic diverticulosis without inflammation. No additional acute pathology, as detailed above. Reviewed, dictated and finalized at location A. EOGRAPHY DIRECTOR
[2024-02-15 17:35] VITALS: BP 179/98; PULSE 76; RESP 18; TEMP 36.1; O2SAT 100
[2024-02-15 21:05] VITALS: BP 179/96; PULSE 87; RESP 20; TEMP 36.2; O2SAT 99
[2024-02-15 21:46] VITALS: BP 167/107; PULSE 84; RESP 22; O2SAT 99
[2024-02-15 22:00] LABS: BEDSIDEPREGUCG Negative (Negative)
[2024-02-15 22:05] LABS: Basophils Percent Auto 0.3 % (0.2-1.2); Eosinophils Absolute Auto 0.2 K/mm3 (0-0.3); Hemoglobin 15.5 g/dL (12.0-15.0); Immature Granulocyte Absolute 0.04 K/mm3 (0.00-0.031); Immature Granulocyte Percent A 0.3 % (0-0.5); Lymphocytes Percent Auto 19.7 % (18.3-44.2); Mean Corpuscular HGB Conc 35.2 g/dl (32-36); Mean Corpuscular Hemoglobin 29.9 pg (26-34); Mean Corpuscular Volume 84.9 fl (80-100); Mean Platelet Volume 9.6 fl (7.4-10.4); Monocytes Absolute Auto 0.4 K/mm3 (0.1-0.6); Monocytes Percent Auto 3.3 % (2.6-8.5); Neutrophils Absolute Auto 8.7 K/mm3 (1.3-6.7); Neutrophils Percent Auto 74.4 % (45.5-73.1); Platelet Count Result 283 k/mm3 (150-375); Red Blood Count 5.18 M/mm3 (4.2-5.4); Red Cell Distribution Width 12.8 % (11.5-14.5); White Blood Count 11.7 K/mm3 (4.5-10.0)
[2024-02-15 22:11] LABS: Add Urine Microscopic? YES; Appearance Urine Clear (Clear); Bacteria Urine 1+ /hpf; Bilirubin Urine Negative (Negative); Blood Urine Negative (Negative); Color Urine Yellow (Yellow); Glucose Urine UA Negative (Negative); Ketones Urine Negative (Negative); Leukocyte Esterase Ur Negative LEU/UL (Negative); Nitrate Urine Negative (Negative); Non Pathogenic Casts 0-2; Protein Urine 1+ mg/dL (Negative); RBC Urine 0-2 /hpf (0-2); Specific Grav Ur 1.027 (1.001-1.035); Squamous Epithelial Cell Urine Few /hpf (Few); Urobilinogen Urine 0.2 mg/dL (<2.0); WBC Urine 0-5 /hpf (0-3); pH Urine 5.5 (5.0-9.0)
[2024-02-15 22:42] LABS: Alanine Aminotransferase 47 U/L (6-35); Albumin Level 4.2 g/dL (3.5-5.1); Alkaline Phosphatase 73 U/L (38-126); Anion Gap 8 mmol/L (4-12); Aspartate Amino Transferase 37 U/L (14-36); Bilirubin,Total 0.8 mg/dL (0.2-1.3); Blood Urea Nitrogen 16 mg/dL (7-17); Calcium 8.9 mg/dL (8.4-10.2); Carbon Dioxide 24 mmol/L (22-30); Chloride 102 mmol/L (98-107); Estimated Glomerular Filt Rate > 60; Glucose 89 mg/dL (65-110); Lipase 49 U/L (23-300); Potassium 3.5 mmol/L (3.4-5.0); Sodium 134 mmol/L (137-145)
[2024-02-15] MEDS: SODIUM CHLORIDE 0.9% IV 1,000 ML 999 ML IV CONT (22:42)
[2024-02-15] MEDS: MORPHINE SULFATE (*CRX) 4 MG/ML INJ IV PUSH (22:43)
[2024-02-15] MEDS: ONDANSETRON INJ 4 MG/2 ML VIAL IV PUSH (22:43)
--- NOTE | 2024-02-15 23:06 | ED_ITS ---
HPI - Abdominal Pain General Chief Complaint: Abdominal Pain Stated Complaint: RUQ pain Time Seen by Provider: 02/15/24 21:50 Source: patient Mode of arrival: ambulatory Limitations: no limitations History of Present Illness HPI narrative: Patient is a 33-year-old female who presents the ED with report of lower abd ominal pain. Patient reports pain began last night around 11:30 p.m.. Has become worse today. She tried taking Tylenol without improvement. Reports nausea with dry heaving, diarrhea. Denies rectal bleeding or melena. Denies fevers. Denies urinary complaints. Related Data Home Medications Medication Instructions Recorded Confirmed amlodipine 5 mg tablet 5 mg PO DAILY 05/16/22 12/21/23 atorvastatin 20 mg tablet 20 mg PO DAILY 05/16/22 12/21/23 hydrochlorothiazide 25 mg tablet 25 mg PO DAILY 05/16/22 12/21/23 levonorgestrel 21 mcg/24 hr (up to 1 device intrauterine ONCE 05/16/22 12/21/23 8 years) 52 mg intrauterine device (Mirena) Allergies Allergy/AdvReac Type Severity Reaction Status Date / Time No Known Allergies Allergy Verified 12/21/23 15:09 Review of Systems Review of Systems: All systems reviewed & are unremarkable except as noted in HPI. All systems reviewed & are unremarkable except as noted in HPI and below PMFSH Past Medical History Medical History Hx of migraines Hypertension during Surgical History Surgical History Hx of cholecystectomy Previous section Family History Family History Other No significant family history Social History Social History Smoking status: Never smoker Alcohol intake: current Alcohol use details: rare Substance use: never Living arrangements: with family Gender identity (if verbalized by the patient): Female Exam Narrative: GENERAL: Well appearing, morbidly obese with BMI of 43.7, non-toxic, in no acute distress. HEAD: Normocephalic, atraumatic. RESPIRATORY: Airway patent, respirations nonlabored. Clear to auscultation bilaterally, no rales, rhonchi, wheezing. CARDIOVASCULAR: Regular rate and rhythm without murmurs, rubs, or gallops. ABDOMINAL: Soft, diffuse tenderness throughout abdomen, most prominent in lower abdomen, epigastric region. No significant focal tenderness. Nondistended. Normoactive BS. MUSCULOSKELETAL: Moves all extremities. No gross deformities. SKIN: Warm, dry, normal color. NEURO: A&O X3. Speech clear. Cranial nerves II-XII grossly intact. Steady gait. No ataxic movements. PSYCHIATRIC: Appropriate mood and affect. Normal interaction. Course Vital Signs Vital signs: Vital Signs Temperature 97.0 F L 02/15/24 17:35 Pulse Rate 76 02/15/24 17:35 Respiratory Rate 18 02/15/24 17:35 Blood Pressure 179/98 H 02/15/24 17:35 Pulse Oximetry 100 02/15/24 17:35 Oxygen Delivery Room Air 02/15/24 17:35 Temperature 97.2 F L 02/15/24 21:05 Pulse Rate 84 02/15/24 21:46 Respiratory Rate 22 H 02/15/24 21:46 Blood Pressure 167/107 H 02/15/24 21:46 Pulse Oximetry 99 02/15/24 21:46 Oxygen Delivery Room Air 02/15/24 21:46 MDM - Abdominal Pain MDM Narrative Medical decision making narrative: Patient presented to ED with lower abdominal pain, onset last night. Patient mildly hypertensive upon arrival. Otherwise in no acute distress. CBC with white blood cell count of 11.7. Neutrophil predominance. No bandemia. CMP is unremarkable. Minimal transaminitis. Normal lipase. Normal bilirubin. UA without evidence of infection. CT scan of abdomen/pelvis was obtained and unremarkable. Showing diverticulosis, no evidence of diverticulitis. No other abnormalities. Discussed lab and imaging findings, overall reassuring workup with patient. She is resting comfortably on re-evaluation, however still complaining of 10 out 10 pain begins crying when I ask about her pain. She was given morphine, Toradol, Bentyl and reporting no change in her pain. Will attempt Haldol and Tylenol. Patient still reporting no change in her pain after these additional medications, but wanting to be discharged. Advised possibility of a gastroenteritis with concurrent diarrhea. Will prescribe Bentyl and Zofran for home. Advised to continue Tylenol and ibuprofen as needed for pain. Recommended follow-up with PCP for further evaluation. Given return precautions. Discharged in stable condition without issue. Patient requesting work note. Medical Records Attestation: I reviewed the patient's medical records. Lab Data Attestation: I reviewed the patient's lab results. 02/15/24 21:55 02/15/24 22:24 Labs: Lab Results 02/15/24 02/15/24 02/15/24 Range/Units 21:55 21:58 22:24 WBC 11.7 H (4.5-10.0) K/mm3 RBC 5.18 (4.2-5.4) M/mm3 Hgb 15.5 H (12.0-15.0) g/dL Hct 44.0 (37.0-47.0) % MCV 84.9 (80-100) fl MCH 29.9 (26-34) pg MCHC 35.2 (32-36) g/dl RDW 12.8 (11.5-14.5) % Plt Count 283 (150-375) k/mm3 MPV 9.6 (7.4-10.4) fl Immature Gran % (Auto) 0.3 (0-0.5) % Neut % (Auto) 74.4 H (45.5-73.1) % Lymph % (Auto) 19.7 (18.3-44.2) % [facility] % (Auto) 3.3 (2.6-8.5) % Eos % (Auto) 2.0 (0-4.4) % Baso % (Auto) 0.3 (0.2-1.2) % Lymph # (Auto) 2.30 (0.9-3.2) K/mm3 [facility] # (Auto) 0.4 (0.1-0.6) K/mm3 Eos # (Auto) 0.2 (0-0.3) K/mm3 Baso # (Auto) 0.0 (0.0-0.1) K/mm3 Abs Immat Gran (auto) 0.04 H (0.00-0.031) K/mm3 Absolute Neuts (auto) 8.7 H (1.3-6.7) K/mm3 Absolute Nucleated RBC 0.000 (0.0-0.012) K/mm3 Nucleated RBC % 0.0 (0.0-0.2) % Sodium 134 L (137-145) mmol/L Potassium 3.5 (3.4-5.0) mmol/L Chloride 102 (98-107) mmol/L Carbon Dioxide 24 (22-30) mmol/L Anion Gap 8 (4-12) mmol/L BUN 16 (7-17) mg/dL Creatinine 0.70 (0.7-1.0) mg/dL Estim Creat Clear Calc Not Reportable Estimated GFR > 60 (59 - ) Glucose 89 (65-110) mg/dL Calcium 8.9 (8.4-10.2) mg/dL Magnesium 1.7 (1.6-2.3) mg/dL Total Bilirubin 0.8 (0.2-1.3) mg/dL AST 37 H (14-36) U/L ALT 47 H (6-35) U/L Alkaline Phosphatase 73 (38-126) U/L Total Protein 8.0 (6.3-8.2) g/dL Albumin 4.2 (3.5-5.1) g/dL Lipase 49 (23-300) U/L Urine Color Yellow (Yellow) Urine Appearance Clear (Clear) Urine pH 5.5 (5.0-9.0) Ur Specific [place] 1.027 (1.001-1.035) Urine Protein 1+ H (Negative) mg/dL Urine Glucose (UA) Negative (Negative) mg/dL Urine Ketones Negative (Negative) mg/dL Ur Blood (Man) Negative (Negative) Urine Nitrate Negative (Negative) Urine Bilirubin Negative (Negative) Urine Urobilinogen 0.2 (<2.0) mg/dL Leukocyte Esterase Rfl Negative (Negative) GEE/UL Urine RBC 0-2 (0-2) /hpf Urine WBC 0-5 (0-3) /hpf Ur Squamous Epith Cells Few (Few) /hpf Urine Bacteria 1+ H /hpf Urine Casts 0-2 POC Urine HCG, Qual Negative (Negative) Imaging Data Attestation: I personally reviewed and interpreted this imaging study as follows: Radiologist's impression: ITS Impressions Abdomen/Pelvis CT 02/15/24 23:37 IMPRESSION: Fatty infiltration of an enlarged liver. Colonic diverticulosis without inflammation. No additional acute pathology, as detailed above. Discharge Plan Discharge Clinical Impression: Diffuse abdominal pain, Diverticulosis of colon Patient Disposition: Home, Self-Care Condition: Stable Instructions: Antibiotic Form, Diverticulosis (ED), Abdominal Pain (ED) Additional Instructions: Your workup here was reassuring. Continue Tylenol, ibuprofen, bentyl as needed for pain. Zofran as needed for nausea. Stay well hydrated. Follow-up with your primary care doctor for further evaluation. Return to the ED if you experience worsening or severe pain, unable to keep down food or drink, persistent fevers, rectal bleeding, or any other symptoms of concern. Prescriptions: New dicyclomine 20 mg tablet 20 mg PO TID PRN (Reason: Abdominal Discomfort) Qty: 15 0RF ondansetron 4 mg tablet,disintegrating 4 mg PO Q8H PRN (Reason: nausea and vomiting) Qty: 15 0RF No Action atorvastatin 20 mg tablet 20 mg PO DAILY amlodipine 5 mg tablet 5 mg PO DAILY hydrochlorothiazide 25 mg tablet 25 mg PO DAILY Mirena 21 mcg/24 hours (8 yrs) 52 mg Intrauterine Device 1 device INTRAUTERINE ONCE Rx Instructions: as a single dose Follow-up/Referrals: Aaron,VINEET Mariscal [Primary Care Provider] - Stand Alone Forms: Work/School Release IP
[2024-02-15 23:17] LABS: Magnesium 1.7 mg/dL (1.6-2.3)
[2024-02-16] MEDS: DICYCLOMINE HCL 10 MG CAPSULE 20 MG PO (00:28)
[2024-02-16] MEDS: KETOROLAC 30 MG/ML VIAL (*BKC) IV PUSH (00:28)
--- NOTE | 2024-02-16 03:57 | PC.NURSE ---
pt medications were given during down time. pt discharge also occurred during downtime. please see paper charting.
== END 2024-02-16 01:55 | disposition home or self-care (01) ==
PROVIDERS: Emergency Medicine; Emergency Provider Physician Assistant; PCP Physician Assistant
DX: K57.90 Diverticulosis of intestine, part unspecified, without perforation or abscess without bleeding (principal); R10.30 Lower abdominal pain, unspecified; Z97.5 Presence of (intrauterine) contraceptive device; Z90.49 Acquired absence of other specified parts of digestive tract; Z79.899 Other long term (current) drug therapy; K76.0 Fatty (change of) liver, not elsewhere classified
CPT/HCPCS: 36415; 74177; 80053; 81001; 81025; 83690; 83735; 85025; 96361; 96374; 96375; 99284; A9270; J1885; J2270; J2405; J7030; Q9967